=== PATIENT | female | born 1995 | race African-American/Black ===

== ENCOUNTER 2024-11-03 06:35 | Inpatient (IN) | payer OTHER ==
[2024-11-03] MEDS: ELECTROLYTE-148 SOLN 500 ML IV ONE (07:15)
[2024-11-03 07:31] LABS: BASOPHILS # 0.02 x10^3/uL (0.01-0.08); MONOCYTE # 0.82 x10^3/uL (0.24-0.86); RDW 15.8 % (12.1-16.5)
[2024-11-03 07:32] LABS: ABSOLUTE IMMATURE GRANULOCYTES 0.05 x10^3/uL (0.0-0.031); EOSINOPHIL % 1.5 % (0.7-5.8); EOSINOPHILS # 0.10 x10^3/uL (0.04-0.36); MCHC 31.2 g/dl (32.2-35.5); MEAN CELL VOLUME 87.3 fl (79.4-94.8); MEAN PLT VOLUME 12.6 fl (9.4-12.3); MONOCYTE % 12.5 % (4.7-12.5)
[2024-11-03 07:34] LABS: INR 1.0 (0.83-1.09); PROTHROMBIN TIME (PATIENT) 11.0 SEC (9.7-13.0)
[2024-11-03 07:36] LABS: ACTIVATED PTT 27.0 SECONDS (25.2-36.5)
[2024-11-03] MEDS: ELECTROLYTE-148 SOLN 1,000 ML IV ONE (07:45)
[2024-11-03 07:46] LABS: CO2 22.0 mmol/L (21-32)
[2024-11-03 07:47] LABS: GLUCOSE,RANDOM 86.0 mg/dL (74-106)
[2024-11-03 07:50] LABS: CREATININE 0.4 mg/dL (0.55-1.3)
[2024-11-03 08:10] VITALS: BMI 31.1
[2024-11-03] MEDS ORDERED: FENTANYL CITRATE/PF 50 MCG/ML VIAL ONE (08:18)
[2024-11-03] MEDS ORDERED: morphine SULFATE/PF 1 MG/2 ML (2cc Syringe - QUVA) ONE (08:18)
[2024-11-03] MEDS: CITRIC ACID/SODIUM CITRATE 30 ML UNIT-DOSE CUP PO ONE (08:30)
[2024-11-03] MEDS ORDERED: SODIUM CHLORIDE 0.9% P/F 10 ML VIAL IJ ONE (09:02)
[2024-11-03] MEDS ORDERED: ONDANSETRON 4 MG/2 ML VIAL ONE (09:02)
[2024-11-03] MEDS ORDERED: PHENYLEPHRINE HCL 10 MG/1 ML SINGLE DOSE VIAL ONE (09:02)
[2024-11-03] MEDS ORDERED: ONDANSETRON 4 MG/2 ML VIAL IVPB PRN (09:46)
[2024-11-03 10:49] LABS: CORD BASE EXCESS -8.0 mmol/L (0-2); CORD HCO3 20.3 mmHg (20-29); CORD PCO2 52.0 mmHg (30-78); CORD pH 7.21 (7.14-7.44)
[2024-11-03 10:53] LABS: CORD BASE EXCESS -3.7 mmol/L (0-2); CORD HCO3 22.6 mmHg (20-29); CORD PCO2 45.0 mmHg (30-78); CORD pH 7.318 (7.14-7.44)
[2024-11-03] MEDS ORDERED: ACETAMINOPHEN INJECTION 100 ML ONE (11:56)
[2024-11-03] MEDS: ACETAMINOPHEN 1000 MG/100 ML BAG IVPB SCH (12:00)
[2024-11-03] MEDS ORDERED: OXYTOCIN 20 UNITS in 0.9% NS 20 UNIT/1,000 ML INFUS.BAG IV ONE (12:33)
[2024-11-03] MEDS: OXYTOCIN 20 UNITS in 0.9% NS 20 UNIT/1,000 ML INFUS.BAG IV SCH (12:40)
[2024-11-03] MEDS: SENNOSIDES/DOCUSATE COMBO (SENNA PLUS) TABLET (UD) PO SCH (21:06)
[2024-11-04] MEDS: IBUPROFEN (CALDOLOR) 800 MG/200 ML PREMIX BAGS IVPB PRN (01:05)
[2024-11-04 07:00] LABS: ABSOLUTE IMMATURE GRANULOCYTES 0.04 x10^3/uL (0.0-0.031); BASOPHILS # 0.02 x10^3/uL (0.01-0.08); EOSINOPHIL % 1.5 % (0.7-5.8); EOSINOPHILS # 0.15 x10^3/uL (0.04-0.36); MCHC 30.3 g/dl (32.2-35.5); MEAN CELL VOLUME 89.1 fl (79.4-94.8); MEAN PLT VOLUME 12.9 fl (9.4-12.3); MONOCYTE # 1.14 x10^3/uL (0.24-0.86); MONOCYTE % 11.8 % (4.7-12.5); RDW 15.9 % (12.1-16.5)
[2024-11-04 08:52] VITALS: RESP 18
[2024-11-04] MEDS: ACETAMINOPHEN 325 MG TABLET (FP) PO SCH (09:16)
[2024-11-04] MEDS: IBUPROFEN 600 MG TABLET (FP) PO PRN (13:29)
[2024-11-04] MEDS: SIMETHICONE 80 MG TAB.CHEW (FP) PO PRN (13:29)
[2024-11-04] MEDS: FERROUS SO4 325 MG TABLET (FP) PO SCH (21:09)
[2024-11-04] MEDS: DOCUSATE SODIUM 100 MG CAPSULE (FP) PO PRN (21:44)
[2024-11-05] MEDS: BACITRACIN ZINC 15 GM TUBE TOPICAL OINTMENT TP SCH (15:19)
[2024-11-05] MEDS: BISACODYL 10 MG SUPP.RECT RC PRN (16:30)
[2024-11-05] MEDS ORDERED: IBUPROFEN 800 MG/8 ML IJ IVPB PRN (17:38)
[2024-11-05] MEDS ORDERED: ACETAMINOPHEN 1000 MG/100 ML BAG IVPB PRN (17:43)
[2024-11-05] MEDS: ACETAMINOPHEN 1000 MG/100 ML BAG IVPB PRN (17:52)
[2024-11-06 10:18] VITALS: BP 122/79; PULSE 93; TEMP 98.9
== END 2024-11-06 13:00 | disposition home or self-care (01) | DRG 540 ==
LOC: JLDR 06:35 → J3W 12:25
PROVIDERS: ADMIT Obstetrics & Gynecology Obstetrics; ATTEND Obstetrics & Gynecology Obstetrics
PROC: 10D00Z1 Extraction of Products of Conception, Low, Open Approach (ICD-10-PCS; principal; 2024-11-03)
DX: O36.5930 Maternal care for other known or suspected poor fetal growth, third trimester, not applicable or unspecified (principal); O34.13 Maternal care for benign tumor of corpus uteri, third trimester; D25.9 Leiomyoma of uterus, unspecified; Z3A.37 37 weeks gestation of pregnancy; Z37.0 Single live birth
CPT/HCPCS: 36415; 36600; 74176-TC; 76700-TC; 80048; 82803; 84460; 85025; 85610; 85730; 86780; 86850; 86900; 86901; 88307-TC